=== PATIENT | female | born 1955 | race Caucasian/White ===

== ENCOUNTER 2016-11-17 23:34 | Emergency (ER) | payer OTHER ==
[2016-11-18 02:13] LABS: HEMOGLOBIN 10.9 gm/dl (12.3-15.3); RED BLOOD COUNT 3.84 M/UL (4.00-5.10)
[2016-11-18 02:43] LABS: BUN/CREATININE RATIO 17 (0-10)
== END 2016-11-18 05:30 | disposition home or self-care (01) ==
LOC: ER1 23:34
PROVIDERS: Student in an Organized Health Care Education/Training Program
DX: J10.1 Influenza due to other identified influenza virus with other respiratory manifestations (principal); R07.89 Other chest pain; E11.9 Type 2 diabetes mellitus without complications; I10 Essential (primary) hypertension; F17.210 Nicotine dependence, cigarettes, uncomplicated; Z90.49 Acquired absence of other specified parts of digestive tract
CPT/HCPCS: 36415; 71020; 80053; 82550; 82553; 83874; 84484; 85025; 93005; 99283